=== PATIENT | female | born 1980 | race Caucasian/White ===

== ENCOUNTER 2018-07-27 09:56 | Emergency (ER) | payer MEDICAID ==
[2018-07-27] MEDS ORDERED: SOD CHLORIDE 0.9% 1,000 ML IV (11:30)
== END 2018-07-27 12:45 | disposition home or self-care (01) ==
LOC: FTE 09:56
DX: O99.89 Other specified diseases and conditions complicating pregnancy, childbirth and the puerperium (principal); R73.9 Hyperglycemia, unspecified; Z3A.09 9 weeks gestation of pregnancy
CPT/HCPCS: 82962; 99282

== ENCOUNTER 2018-07-30 16:48 | Emergency (ER) | payer MEDICAID ==
[2018-07-30 19:58] LABS: ADD MAN DIFF? NO
[2018-07-30 20:10] LABS: BASOPHIL # 0.1 10^3/ul (0.0-0.1); BASOPHILS % 0.5 % (0.0-2.0); EOSINOPHILS # 0.2 10^3/ul (0.0-0.5); EOSINOPHILS % 1.7 % (0.0-7.0); HEMATOCRIT 39.6 % (37.0-47.0); HEMOGLOBIN 12.8 g/dl (12.0-16.0); LYMPHOCYTES # 2.9 10^3/ul (0.8-2.9); LYMPHOCYTES % 28.2 % (15.0-51.0); MEAN CORPUSCULAR HEMOGLOBIN 28.6 pg (29.0-33.0); MEAN CORPUSCULAR HGB CONC 32.3 g/dl (32.0-37.0); MEAN CORPUSCULAR VOLUME 88.4 fl (82.0-101.0); MEAN PLATELET VOLUME 9.9 fl (7.4-10.4); MONOCYTE # 0.8 10^3/ul (0.3-0.9); MONOCYTES % 8.1 % (0.0-11.0); NEUTROPHIL # 6.4 10^3/ul (1.6-7.5); NEUTROPHILS % 61.1 % (39.0-77.0); PLATELET COUNT 379 10^3/UL (140-415); RED BLOOD COUNT 4.48 10^6/ul (4.20-5.40); RED CELL DISTRIBUTION WIDTH 15.6 % (11.5-14.5)
[2018-07-30 20:10] LABS: WHITE BLOOD COUNT 10.4 10^3/ul (4.8-10.8)
[2018-07-30 20:14] LABS: ADD UMIC NO; UR ASCORBIC ACID 20 mg/dL (NEGATIVE); UR BILIRUBIN (Dip) NEGATIVE (NEGATIVE); UR BLOOD (Dip) NEGATIVE (NEGATIVE); UR CLARITY CLEAR (CLEAR); UR COLOR YELLOW (YELLOW); UR GLUCOSE (Dip) 3+ mg/dL (NEGATIVE); UR KETONES (Dip) TRACE mg/dL (NEGATIVE); UR LEUKOCYTE ESTERASE (Dip) NEGATIVE Leu/ul (NEGATIVE); UR NITRITE (Dip) NEGATIVE (NEGATIVE); UR SPECIFIC GRAVITY (Dip) 1.024 (1.003-1.030); UR TOTAL PROTEIN (Dip) NEGATIVE (NEGATIVE); UR UROBILINOGEN (Dip) NEGATIVE (NEGATIVE)
[2018-07-30 20:21] LABS: ANION GAP 11 (5-13); BLOOD UREA NITROGEN 9 mg/dl (7-20); CALCIUM 9.5 mg/dl (8.4-10.2); CARBON DIOXIDE 22 mmol/L (21-31); CHLORIDE 107 mmol/L (97-110); CREATININE 0.56 mg/dl (0.44-1.00); Estimated GFR > 60 mL/min (>60); GLUCOSE 157 mg/dl (70-220); POTASSIUM 4.1 mmol/L (3.5-5.1); SODIUM 140 mmol/L (135-144)
[2018-07-30] MEDS: SOD CHLORIDE 0.9% 1,000 ML IV (20:35)
== END 2018-07-30 23:07 | disposition home or self-care (01) ==
LOC: FTE 16:48
DX: O24.419 Gestational diabetes mellitus in pregnancy, unspecified control (principal); Z3A.01 Less than 8 weeks gestation of pregnancy; Z79.4 Long term (current) use of insulin
CPT/HCPCS: 36415; 80048; 81003; 82962; 85025; 96360; 96361; 99284-25

== ENCOUNTER 2018-07-30 23:24 | Inpatient (IN) | payer MEDICAID ==
[2018-07-30] MEDS ORDERED: GLUCOSE GEL 15 GRAM TUBE BUCCAL (23:45)
[2018-07-30] MEDS ORDERED: GLUCAGON 1 MG INJ IM (23:45)
[2018-07-30] MEDS ORDERED: GLUCOSE GEL 15 GRAM TUBE PO ×2 (23:45)
[2018-07-30] MEDS ORDERED: DEXTROSE 50% 50 ML SYRINGE IV ×2 (23:45)
[2018-07-31] MEDS ORDERED: NACL 0.9% 3 ML SYG IV
[2018-07-31] MEDS ORDERED: AL HYDROX/MG HYDROX/SIMETH 30 ML CUP PO
[2018-07-31 01:07] LABS: HEMOGLOBIN A1C 8.1 % (0-5.9)
[2018-07-31] MEDS ORDERED: VITAMIN A & D 5 GM OINT PACKET TOP (01:36)
[2018-07-31] MEDS: INSULIN ASPART [NOVOLOG] 3 ML PEN SC ×3 (08:00→21:21)
[2018-07-31] MEDS: ACCU-CHEK XX ×7 (08:00→21:14)
[2018-07-31 09:36] LABS: ADD UMIC NO; UR ASCORBIC ACID NEGATIVE (NEGATIVE); UR BILIRUBIN (Dip) NEGATIVE (NEGATIVE); UR BLOOD (Dip) NEGATIVE (NEGATIVE); UR CLARITY CLEAR (CLEAR); UR COLOR STRAW (YELLOW); UR GLUCOSE (Dip) NEGATIVE (NEGATIVE); UR KETONES (Dip) 1+ mg/dL (NEGATIVE); UR LEUKOCYTE ESTERASE (Dip) NEGATIVE Leu/ul (NEGATIVE); UR NITRITE (Dip) NEGATIVE (NEGATIVE); UR SPECIFIC GRAVITY (Dip) 1.004 (1.003-1.030); UR TOTAL PROTEIN (Dip) NEGATIVE (NEGATIVE); UR UROBILINOGEN (Dip) NEGATIVE (NEGATIVE)
[2018-07-31] MEDS: PRENATAL VITAMIN PO (10:57)
[2018-07-31] MEDS: FERROUS SULFATE (EC) 325 MG TAB PO (10:57)
[2018-07-31] MEDS: ACETAMINOPHEN 325 MG TAB PO (22:03)
[2018-08-01 01:15] LABS: COLLECTION PERIOD 24 hrs
[2018-08-01 01:34] LABS: COLLECTION PERIOD 24 hrs; VOLUME 3600 ml/24hrs
[2018-08-01 01:35] LABS: VOLUME 3600 mls
[2018-08-01 01:44] LABS: SCRET 0.56 mg/dl (0.44-1.00)
[2018-08-01 01:45] LABS: CREATININE CLEARANCE 225.9 mls/min (84.0-162.0); CREATININE,URINE RANDOM 50.61 mg/dl (20-320)
[2018-08-01] MEDS: ACETAMINOPHEN 325 MG TAB PO ×2 (05:43→12:33)
[2018-08-01] MEDS: ACCU-CHEK XX ×7 (08:08→20:36)
[2018-08-01] MEDS: FERROUS SULFATE (EC) 325 MG TAB PO (08:27)
[2018-08-01] MEDS: PRENATAL VITAMIN PO (08:27)
[2018-08-01] MEDS: INSULIN ASPART [NOVOLOG] 3 ML PEN SC ×2 (10:21→15:32)
[2018-08-01] MEDS: NPH, HUMAN INSULIN ISOPHANE 3ML VIAL SC (22:21)
[2018-08-02] MEDS: ACCU-CHEK XX ×7 (07:45→20:32)
[2018-08-02] MEDS: PRENATAL VITAMIN PO (08:31)
[2018-08-02] MEDS: FERROUS SULFATE (EC) 325 MG TAB PO (08:31)
[2018-08-02] MEDS: NPH, HUMAN INSULIN ISOPHANE 3ML VIAL SC ×2 (08:32→20:50)
[2018-08-02] MEDS: INSULIN ASPART [NOVOLOG] 3 ML PEN SC ×2 (08:33→18:06)
[2018-08-03] MEDS: ACETAMINOPHEN 325 MG TAB PO ×4 (04:44→17:01)
[2018-08-03] MEDS: ACCU-CHEK XX ×6 (07:51→18:09)
[2018-08-03] MEDS: NPH, HUMAN INSULIN ISOPHANE 3ML VIAL SC (08:46)
[2018-08-03] MEDS: INSULIN ASPART [NOVOLOG] 3 ML PEN SC ×2 (08:47→17:50)
[2018-08-03] MEDS: PRENATAL VITAMIN PO (08:49)
[2018-08-03] MEDS: FERROUS SULFATE (EC) 325 MG TAB PO (08:49)
== END 2018-08-03 19:00 | disposition home or self-care (01) | DRG 833 ==
LOC: PP1 23:24
PROVIDERS: Obstetrics & Gynecology
DX: O24.111 Pre-existing type 2 diabetes mellitus, in pregnancy, first trimester (principal); E11.65 Type 2 diabetes mellitus with hyperglycemia; Z3A.10 10 weeks gestation of pregnancy; Z83.3 Family history of diabetes mellitus
CPT/HCPCS: 76801; 81003; 82575; 82962; 83036; 84156; 87086; 93005

== ENCOUNTER 2018-11-14 01:11 | Inpatient (IN) | payer MEDICAID ==
[2018-11-14 02:46] LABS: ADD UMIC NO; UR ASCORBIC ACID NEGATIVE (NEGATIVE); UR BILIRUBIN (Dip) NEGATIVE (NEGATIVE); UR BLOOD (Dip) NEGATIVE (NEGATIVE); UR CLARITY CLEAR (CLEAR); UR COLOR STRAW (YELLOW); UR GLUCOSE (Dip) NEGATIVE (NEGATIVE); UR KETONES (Dip) NEGATIVE (NEGATIVE); UR LEUKOCYTE ESTERASE (Dip) NEGATIVE Leu/ul (NEGATIVE); UR NITRITE (Dip) NEGATIVE (NEGATIVE); UR SPECIFIC GRAVITY (Dip) 1.006 (1.003-1.030); UR TOTAL PROTEIN (Dip) NEGATIVE (NEGATIVE); UR UROBILINOGEN (Dip) NEGATIVE (NEGATIVE)
[2018-11-14] MEDS: SOD CHLORIDE 0.9% 1,000 ML IV ×2 (03:04→22:11)
[2018-11-14] MEDS: CEFTRIAXONE 1 GM/50 ML (PMX) 50 ML IVPB (04:22)
[2018-11-14] MEDS: ACETAMINOPHEN 325 MG TAB PO ×3 (04:23→21:05)
[2018-11-14] MEDS: ACCU-CHEK XX ×4 (08:25→20:16)
[2018-11-14] MEDS: INSULIN REGULAR, HUMAN 100 UNIT/1 ML 3ML VIAL SC ×2 (09:19→17:49)
[2018-11-14] MEDS: NPH, HUMAN INSULIN ISOPHANE 3ML VIAL SC ×2 (09:22→21:00)
[2018-11-14] MEDS: PRENATAL VITAMIN PO (09:22)
[2018-11-14] MEDS: FERROUS SULFATE (EC) 325 MG TAB PO (09:22)
[2018-11-14] MEDS ORDERED: SALINE 0.65% 45 ML NAS SPRAY NASAL (12:00)
[2018-11-14 16:26] LABS: ADD MAN DIFF? NO
[2018-11-14 16:27] LABS: WHITE BLOOD COUNT 12.6 10^3/ul (4.8-10.8)
[2018-11-14 16:27] LABS: BASOPHILS % 0.2 % (0.0-2.0); EOSINOPHILS # 0.1 10^3/ul (0.0-0.5); HEMATOCRIT 33.2 % (37.0-47.0); HEMOGLOBIN 10.9 g/dl (12.0-16.0); LYMPHOCYTES % 15.7 % (15.0-51.0); MEAN CORPUSCULAR HEMOGLOBIN 31.1 pg (29.0-33.0); MEAN CORPUSCULAR HGB CONC 32.8 g/dl (32.0-37.0); MEAN CORPUSCULAR VOLUME 94.6 fl (82.0-101.0); MEAN PLATELET VOLUME 9.8 fl (7.4-10.4); MONOCYTES % 7.5 % (0.0-11.0); NEUTROPHIL # 9.5 10^3/ul (1.6-7.5); NEUTROPHILS % 75.2 % (39.0-77.0); PLATELET COUNT 294 10^3/UL (140-415); RED BLOOD COUNT 3.51 10^6/ul (4.20-5.40); RED CELL DISTRIBUTION WIDTH 14.7 % (11.5-14.5)
[2018-11-14 16:46] LABS: ALANINE AMINOTRANSFERASE 12 IU/L (13-69); ALBUMIN 3.5 g/dl (3.3-4.9); ALBUMIN/GLOBULIN RATIO 0.97; ALKALINE PHOSPHATASE 79 IU/L (42-121); ANION GAP 8 (5-13); ASPARTATE AMINO TRANSFERASE 16 IU/L (15-46); BILIRUBIN,INDIRECT 0.3 mg/dl (0-1.1); BILIRUBIN,TOTAL 0.3 mg/dl (0.2-1.3); BLOOD UREA NITROGEN 8 mg/dl (7-20); CALCIUM 8.8 mg/dl (8.4-10.2); CARBON DIOXIDE 21 mmol/L (21-31); CHLORIDE 110 mmol/L (97-110); CREATININE 0.54 mg/dl (0.44-1.00); Estimated GFR > 60 mL/min (>60); GLUCOSE 101 mg/dl (70-220); SODIUM 139 mmol/L (135-144); TOTAL PROTEIN 7.1 g/dl (6.1-8.1)
[2018-11-15] MEDS: SOD CHLORIDE 0.9% 1,000 ML IV (01:12)
[2018-11-15] MEDS: CEFTRIAXONE 1 GM/50 ML (PMX) 50 ML IVPB (04:05)
[2018-11-15] MEDS: ACCU-CHEK XX ×3 (08:21→15:30)
[2018-11-15] MEDS: INSULIN REGULAR, HUMAN 100 UNIT/1 ML 3ML VIAL SC ×2 (08:29→18:06)
[2018-11-15] MEDS: NPH, HUMAN INSULIN ISOPHANE 3ML VIAL SC (08:30)
[2018-11-15] MEDS: FERROUS SULFATE (EC) 325 MG TAB PO (08:31)
[2018-11-15] MEDS: PRENATAL VITAMIN PO (08:31)
== END 2018-11-15 19:40 | disposition home or self-care (01) | DRG 833 ==
LOC: OBT 01:11 → L-D 01:11 → OBT 03:00 → PP1 03:00
DX: O23.42 Unspecified infection of urinary tract in pregnancy, second trimester (principal); Z3A.24 24 weeks gestation of pregnancy
CPT/HCPCS: 36415; 80053; 81003; 82962; 85025; 87040-91; 87086

== ENCOUNTER 2018-12-05 05:35 | Outpatient (CLI) | payer MEDICAID ==
[2018-12-05] MEDS: ACETAMINOPHEN 500 MG TAB PO (07:04)
[2018-12-05 08:53] LABS: ADD MAN DIFF? NO
[2018-12-05 08:55] LABS: BASOPHILS % 0.3 % (0.0-2.0); EOSINOPHILS # 0.2 10^3/ul (0.0-0.5); EOSINOPHILS % 1.7 % (0.0-7.0); HEMATOCRIT 33.9 % (37.0-47.0); HEMOGLOBIN 11.4 g/dl (12.0-16.0); LYMPHOCYTES # 1.8 10^3/ul (0.8-2.9); LYMPHOCYTES % 15.5 % (15.0-51.0); MEAN CORPUSCULAR HEMOGLOBIN 30.6 pg (29.0-33.0); MEAN CORPUSCULAR HGB CONC 33.6 g/dl (32.0-37.0); MEAN CORPUSCULAR VOLUME 91.1 fl (82.0-101.0); MEAN PLATELET VOLUME 9.8 fl (7.4-10.4); MONOCYTE # 0.6 10^3/ul (0.3-0.9); NEUTROPHIL # 8.8 10^3/ul (1.6-7.5); NEUTROPHILS % 76.9 % (39.0-77.0); PLATELET COUNT 310 10^3/UL (140-415); RED BLOOD COUNT 3.72 10^6/ul (4.20-5.40); RED CELL DISTRIBUTION WIDTH 14.2 % (11.5-14.5)
[2018-12-05 08:55] LABS: WHITE BLOOD COUNT 11.5 10^3/ul (4.8-10.8)
[2018-12-05] MEDS: NPH, HUMAN INSULIN ISOPHANE 3ML VIAL SC (08:55)
[2018-12-05] MEDS: INSULIN REGULAR, HUMAN 100 UNIT/1 ML 3ML VIAL SC (08:57)
[2018-12-05 09:07] LABS: ADD UMIC NO; UR ASCORBIC ACID NEGATIVE (NEGATIVE); UR BILIRUBIN (Dip) NEGATIVE (NEGATIVE); UR BLOOD (Dip) NEGATIVE (NEGATIVE); UR CLARITY CLEAR (CLEAR); UR COLOR STRAW (YELLOW); UR GLUCOSE (Dip) NEGATIVE (NEGATIVE); UR KETONES (Dip) NEGATIVE (NEGATIVE); UR LEUKOCYTE ESTERASE (Dip) NEGATIVE Leu/ul (NEGATIVE); UR NITRITE (Dip) NEGATIVE (NEGATIVE); UR TOTAL PROTEIN (Dip) NEGATIVE (NEGATIVE); UR UROBILINOGEN (Dip) NEGATIVE (NEGATIVE)
[2018-12-05 09:17] LABS: ALANINE AMINOTRANSFERASE 9 IU/L (13-69); ALBUMIN 3.6 g/dl (3.3-4.9); ALKALINE PHOSPHATASE 81 IU/L (42-121); ANION GAP 8 (5-13); ASPARTATE AMINO TRANSFERASE 15 IU/L (15-46); BILIRUBIN,INDIRECT 0.3 mg/dl (0-1.1); BILIRUBIN,TOTAL 0.3 mg/dl (0.2-1.3); BLOOD UREA NITROGEN 7 mg/dl (7-20); CALCIUM 9.3 mg/dl (8.4-10.2); CARBON DIOXIDE 19 mmol/L (21-31); CHLORIDE 113 mmol/L (97-110); CREATININE 0.44 mg/dl (0.44-1.00); Estimated GFR > 60 mL/min (>60); GLUCOSE 106 mg/dl (70-220); POTASSIUM 3.9 mmol/L (3.5-5.1); SODIUM 140 mmol/L (135-144); TOTAL PROTEIN 7.2 g/dl (6.1-8.1); URIC ACID 3.1 mg/dl (3.1-7.9)
[2018-12-05] MEDS: ACET/BUTAL/CAFF TAB PO (11:00)
[2018-12-05] MEDS ORDERED: INSULIN REGULAR, HUMAN 100 UNIT/1 ML 3ML VIAL SC (18:00)
== END 2018-12-05 11:37 | disposition home or self-care (01) ==
LOC: OBT 05:35 → L-D 05:37 → OBT 11:37
DX: O26.892 Other specified pregnancy related conditions, second trimester (principal); R51 Headache; R10.9 Unspecified abdominal pain; O24.414 Gestational diabetes mellitus in pregnancy, insulin controlled; O09.522 Supervision of elderly multigravida, second trimester; Z3A.27 27 weeks gestation of pregnancy
CPT/HCPCS: 36415; 76817; 76818; 80053; 81003; 82962; 84560; 85025

== ENCOUNTER 2018-12-08 18:34 | Outpatient (CLI) | payer MEDICAID ==
[2018-12-08 19:05] LABS: ADD MAN DIFF? NO
[2018-12-08 19:07] LABS: WHITE BLOOD COUNT 11.7 10^3/ul (4.8-10.8)
[2018-12-08 19:07] LABS: BASOPHILS % 0.3 % (0.0-2.0); EOSINOPHILS # 0.2 10^3/ul (0.0-0.5); EOSINOPHILS % 1.7 % (0.0-7.0); HEMATOCRIT 35.4 % (37.0-47.0); LYMPHOCYTES # 2.1 10^3/ul (0.8-2.9); LYMPHOCYTES % 17.9 % (15.0-51.0); MEAN CORPUSCULAR HEMOGLOBIN 31.2 pg (29.0-33.0); MEAN CORPUSCULAR HGB CONC 33.9 g/dl (32.0-37.0); MEAN CORPUSCULAR VOLUME 91.9 fl (82.0-101.0); MEAN PLATELET VOLUME 9.7 fl (7.4-10.4); MONOCYTE # 0.8 10^3/ul (0.3-0.9); MONOCYTES % 6.6 % (0.0-11.0); NEUTROPHIL # 8.4 10^3/ul (1.6-7.5); NEUTROPHILS % 72.3 % (39.0-77.0); PLATELET COUNT 333 10^3/UL (140-415); RED BLOOD COUNT 3.85 10^6/ul (4.20-5.40)
[2018-12-08 19:15] LABS: ADD UMIC NO; UR ASCORBIC ACID NEGATIVE (NEGATIVE); UR BILIRUBIN (Dip) NEGATIVE (NEGATIVE); UR BLOOD (Dip) NEGATIVE (NEGATIVE); UR CLARITY CLEAR (CLEAR); UR COLOR YELLOW (YELLOW); UR GLUCOSE (Dip) NEGATIVE (NEGATIVE); UR KETONES (Dip) NEGATIVE (NEGATIVE); UR LEUKOCYTE ESTERASE (Dip) NEGATIVE Leu/ul (NEGATIVE); UR NITRITE (Dip) NEGATIVE (NEGATIVE); UR SPECIFIC GRAVITY (Dip) 1.025 (1.003-1.030); UR TOTAL PROTEIN (Dip) NEGATIVE (NEGATIVE); UR UROBILINOGEN (Dip) NEGATIVE (NEGATIVE)
[2018-12-08 19:29] LABS: ALANINE AMINOTRANSFERASE 11 IU/L (13-69); ALBUMIN 3.8 g/dl (3.3-4.9); ALBUMIN/GLOBULIN RATIO 0.97; ALKALINE PHOSPHATASE 96 IU/L (42-121); ANION GAP 11 (5-13); ASPARTATE AMINO TRANSFERASE 15 IU/L (15-46); BILIRUBIN,INDIRECT 0.2 mg/dl (0-1.1); BILIRUBIN,TOTAL 0.2 mg/dl (0.2-1.3); BLOOD UREA NITROGEN 11 mg/dl (7-20); CALCIUM 9.7 mg/dl (8.4-10.2); CARBON DIOXIDE 19 mmol/L (21-31); CHLORIDE 111 mmol/L (97-110); CREATININE 0.71 mg/dl (0.44-1.00); Estimated GFR > 60 mL/min (>60); GLUCOSE 155 mg/dl (70-220); SODIUM 141 mmol/L (135-144); TOTAL PROTEIN 7.7 g/dl (6.1-8.1); URIC ACID 3.6 mg/dl (3.1-7.9)
== END 2018-12-08 22:03 | disposition home or self-care (01) ==
LOC: OBT 18:34 → L-D 18:36 → OBT 22:03
DX: O26.893 Other specified pregnancy related conditions, third trimester (principal); R51 Headache; O24.113 Pre-existing type 2 diabetes mellitus, in pregnancy, third trimester; E11.9 Type 2 diabetes mellitus without complications; Z79.4 Long term (current) use of insulin; Z3A.28 28 weeks gestation of pregnancy
CPT/HCPCS: 76818; 80053; 81003; 84560; 85025

== ENCOUNTER 2018-12-08 22:13 | Emergency (ER) | payer MEDICAID | END 2018-12-09 01:45 | disposition home or self-care (01) | LOC: FTE 22:13 | DX: O26.893 Other specified pregnancy related conditions, third trimester (principal); R51 Headache; R05 Cough; O24.113 Pre-existing type 2 diabetes mellitus, in pregnancy, third trimester; E11.9 Type 2 diabetes mellitus without complications; Z3A.28 28 weeks gestation of pregnancy; Z79.4 Long term (current) use of insulin | CPT/HCPCS: 99282; Z7502 ==